=== PATIENT | male | born 1995 | race African-American/Black ===

== ENCOUNTER 2019-11-05 20:45 | Inpatient (IN) ==
[2019-11-05 21:31] LABS: ABS Basophils 0.1 10^3/ul (0-0.2); ABS Eosinophils 0.1 10^3/ul (0-0.6); ABS Lymphocytes 2.6 10^3/ul (1.0-4.8); ABS Monocytes 0.8 10^3/ul (0-0.8); Eosinophil % 0.6 %; Hematocrit 44 % (42-52); Lymphocyte % 31.5 %; Mean Corpuscular HGB Conc 34 g/dL (31-36); Mean Corpuscular Hemoglobin 28 pg (27-31); Mean Corpuscular Volume 84 fL (80-94); Mean Platelet Volume 10.8 fL (7.4-10.4); Platelet Count 125 10^3/uL (150-450); Red Blood Count 5.29 10^6 /uL (4.18-5.48); Red Cell Distribution Width 14 % (10-15); White Blood Count 8.2 10^3/uL (3.5-10.8)
[2019-11-05 21:41] LABS: ALT 18 U/L (7-52); AST 28 U/L (13-39); Albumin 4.5 g/dL (3.2-5.2); Albumin/Globulin Ratio 1.4 (1-3); Alkaline Phosphatase 46 U/L (34-104); Anion Gap 8 mmol/L (2-11); BUN/Creatinine Ratio 13.5 (8-20); Blood Urea Nitrogen 14 mg/dL (6-24); CO2 Carbon Dioxide 25 mmol/L (22-32); Calcium 9.8 mg/dL (8.6-10.3); Chloride 107 mmol/L (101-111); EGFR African American 106.2 (>60); EGFR Non-African American 87.7 (>60); Globulin 3.3 g/dL (2-4); Glucose 90 mg/dL (70-100); Potassium 3.5 mmol/L (3.5-5.0); Sodium 140 mmol/L (135-145); Total Protein 7.8 g/dL (6.4-8.9)
[2019-11-05 22:16] LABS: Acetaminophen < 15 mcg/mL; Alcohol, S < 10 mg/dL (<10); Salicylate < 2.50 mg/dL (<30)
[2019-11-05] MEDS ORDERED: LORazepam 1 mg TAB (*) PO ONE (22:23)
[2019-11-05 22:31] LABS: TSH (Thyroid Stimulating Horm) 0.75 mcIU/mL (0.34-5.60)
[2019-11-05 22:56] LABS: Urine Appearance Cloudy; Urine Bilirubin Negative (Negative); Urine Blood Negative (Negative); Urine Color Yellow; Urine Glucose Negative (Negative); Urine Ketones 1+ (Negative); Urine Nitrite Negative (Negative); Urine Protein Negative (Negative); Urine Specific Gravity 1.024 (1.010-1.030); Urine Urobilinogen Negative (Negative)
[2019-11-05] MEDS ORDERED: LORazepam 1 mg TAB (*) ONE (23:10)
[2019-11-05 23:14] LABS: Urine Benzodiazepine Screen None Detected (None Detect); Urine Opiates Screen None Detected (None Detect)
[2019-11-05] MEDS: diPHENhydraMINE IV 50 MG/ML 1 ml VIAL (BENADRYL) IM ONE (23:47)
[2019-11-05] MEDS: Haloperidol 5 mg/ml SDV IV/IM 5 MG/ML AMP IM ONE (23:48)
[2019-11-06] MEDS: Haloperidol 5 mg/ml SDV IV/IM 5 MG/ML AMP IM ONE (00:42)
[2019-11-06] MEDS: diPHENhydraMINE IV 50 MG/ML 1 ml VIAL (BENADRYL) IM ONE (00:44)
[2019-11-06] MEDS ORDERED: Al Hydrox/Mg Hydrox/Simet LIQ 30 ML UDC PO PRN (14:27)
[2019-11-06] MEDS: LORazepam 1 mg TAB (*) PO PRN (23:24)
[2019-11-07 08:33] LABS: HDL Cholesterol 80.9 mg/dL
[2019-11-07] MEDS: Vitamin THERAPEUTIC TAB PO SCH (11:43)
[2019-11-07] MEDS: LORazepam 1 mg TAB (*) PO PRN (18:35)
[2019-11-08] MEDS: LORazepam 1 mg TAB (*) PO PRN (00:29)
[2019-11-08] MEDS: Vitamin THERAPEUTIC TAB PO SCH (09:00)
[2019-11-09] MEDS: Vitamin THERAPEUTIC TAB PO SCH (08:32)
[2019-11-09] MEDS: LORazepam 1 mg TAB (*) PO PRN (17:13)
[2019-11-10] MEDS: Vitamin THERAPEUTIC TAB PO SCH (12:20)
[2019-11-10] MEDS: Nicotine GUM 2MG FRUIT FLAVOR PO PRN ×2 (17:58→23:19)
[2019-11-11] MEDS: Vitamin THERAPEUTIC TAB PO SCH (08:50)
[2019-11-11] MEDS: LORazepam 1 mg TAB (*) PO PRN ×2 (11:29→23:06)
[2019-11-11] MEDS: Polyethylene Glycol 3350 17 GM PACKET PO SCH (16:50)
[2019-11-12] MEDS: Vitamin THERAPEUTIC TAB PO SCH (09:49)
[2019-11-12] MEDS: Polyethylene Glycol 3350 17 GM PACKET PO SCH (09:49)
[2019-11-12] MEDS: LORazepam 1 mg TAB (*) PO PRN (20:44)
[2019-11-13] MEDS: Vitamin THERAPEUTIC TAB PO SCH (08:56)
[2019-11-13] MEDS: Polyethylene Glycol 3350 17 GM PACKET PO SCH (08:58)
[2019-11-13] MEDS: Nicotine GUM 2MG FRUIT FLAVOR PO PRN (10:01)
[2019-11-13] MEDS: LORazepam 1 mg TAB (*) PO PRN (23:23)
[2019-11-14] MEDS: Vitamin THERAPEUTIC TAB PO SCH (08:56)
[2019-11-14] MEDS: Polyethylene Glycol 3350 17 GM PACKET PO SCH (08:56)
[2019-11-14] MEDS: Nicotine GUM 2MG FRUIT FLAVOR PO PRN (13:36)
[2019-11-14] MEDS: LORazepam 1 mg TAB (*) PO PRN (17:28)
[2019-11-15] MEDS: Nicotine GUM 2MG FRUIT FLAVOR PO PRN ×2 (06:29→09:23)
[2019-11-15 08:13] VITALS: BP 140/65
[2019-11-15] MEDS: Vitamin THERAPEUTIC TAB PO SCH (09:23)
[2019-11-15] MEDS: Polyethylene Glycol 3350 17 GM PACKET PO SCH (09:23)
== END 2019-11-15 11:00 | disposition home or self-care (01) | DRG 885 ==
LOC: ED 20:45 → BSU 11-06 08:56
PROVIDERS: ADMIT Psychiatry & Neurology Psychiatry; ATTEND Psychiatry & Neurology Psychiatry